=== PATIENT | male | born 1945 | race Caucasian/White ===

== ENCOUNTER 2021-12-13 15:35 | Emergency (ER) | payer OTHER, SELFPAY ==
[2021-12-13] VITALS (10 sets, daily range): BP systolic 110–139; BP diastolic 59–74; PULSE 65–94; RESP 17–35; TEMP 36.6; O2SAT 94–96; BMI 34.4
--- NOTE | 2021-12-13 15:56 | DI.RAD.S_ITS ---
PROCEDURE: XR CHEST 2V INDICATIONS: shortness of breath TECHNIQUE: 2 views of the chest were acquired. COMPARISON: None. FINDINGS: Surgical changes and devices: Tenotomy wires are noted. Lungs and pleura: Lungs are clear. No pleural effusions or pneumothorax. Mediastinum: Mediastinal contours are normal. Heart size is mildly enlarged. Bones and chest wall: No suspicious bony abnormalities. Soft tissues appear unremarkable. IMPRESSION: No acute cardiopulmonary abnormality. Approved by: Myles Modi M.D. on 12/13/2021 at 16:30
--- NOTE | 2021-12-13 16:24 | ED.SOB ---
HPI - SOB/Dyspnea General Chief Complaint: Shortness of Breath/Dyspnea Stated Complaint: Thinks pneumonia Time Seen by Provider: 12/13/21 16:17 Source: patient Mode of arrival: Ambulatory History of Present Illness HPI Narrative: Patient is a 76-year-old male history of asthma coronary artery disease with bypass, hypertension hyperlipidemia, CVA presenting today with increasing shortness of breath. He states he took 10 days of prednisone and doxycycline prescribed from his doctor in [place]. He says he does not feel any better. He short of breath with exertion. He has not had any fever or chills. He feels like his legs are more swollen than normal. He has no chest pain. He is visiting from [place] he arrived couple of weeks ago. He says typically when he comes to [facility] he always gets sick to his doctor gave him medications. However he finished the medications and overall does not feel any better. Related Data Home Medications Medication Instructions Recorded Confirmed albuterol sulfate 90 mcg/actuation 1 puff inhalation PRN PRN 12/13/21 12/13/21 aerosol inhaler Shortness Of Breath amlodipine 5 mg tablet 5 mg PO DAILY 12/13/21 12/13/21 aspirin 81 mg tablet,delayed 81 mg PO DAILY 12/13/21 12/13/21 release atorvastatin 40 mg tablet 40 mg PO BEDTIME 12/13/21 12/13/21 clopidogrel 75 mg tablet 75 mg PO DAILY 12/13/21 12/13/21 losartan 100 mg tablet 100 mg PO DAILY 12/13/21 12/13/21 metoprolol succinate 25 mg 37.5 mg PO DAILY 12/13/21 12/13/21 tablet,extended release 24 hr omeprazole 20 mg capsule,delayed 20 mg PO 12/13/21 release tamsulosin 0.4 mg capsule 0.4 mg PO DAILY 12/13/21 12/13/21 Previous Rx's Medication Instructions Recorded albuterol sulfate 2.5 mg/3 mL 2.5 mg (3 mL) inhalation QID PRN 12/13/21 (0.083 %) solution for nebulization bronchospasm #75 mL furosemide 20 mg tablet (Lasix) 20 mg PO QAM #3 tabs 12/13/21 Allergies Allergy/AdvReac Type Severity Reaction Status Date / Time levofloxacin [From Levaquin] AdvReac Neuropathy Verified 12/13/21 15:55 Review of Systems Review of Systems Narrative: GENERAL: Denies chills, fatigue, malaise, fever, sweats, travel HEENT: Denies sinus pain, ear pain, sore throat, difficulty swallowing, neck pain RESPIRATORY: See HPI CARDIOVASCULAR: Denies chest pain, palpitations, orthopnea, edema GASTROINTESTINAL: Denies nausea, vomiting, abdominal pain, diarrhea, constipation, melena. : Denies dysuria, frequency, incontinence, hematuria, urinary retention, flank pain. MUSCULOSKELETAL: Denies weakness, joint pain, or bony pain SKIN: No rash, no erythema, no pruritus NEUROLOGIC: Denies weakness, dizziness, headache, numbness, change in speech, confusion PSYCHIATRIC: No concerning psychosocial issues. 12 point review of systems is negative except for those stated above and HPI Patient History Social History Smoking Status: Never smoker Smoking Status: Never smoker alcohol intake frequency: other Substance Use Type: does not use Exam Initial Vital Signs Initial Vital Signs: Vital Signs Temperature 98 F 12/13/21 15:47 Pulse Rate 67 12/13/21 15:47 Respiratory Rate 17 12/13/21 15:47 Blood Pressure 133/61 12/13/21 15:47 Pulse Oximetry 96 12/13/21 15:47 Oxygen Delivery Method 12/13/21 15:47 GENERAL: Alert very pleasant 76-year-old male and in no acute distress. HEENT: Head atraumatic,EOMI, pupils reactive, face symmetric, moist mucous membranes CARDIOVASCULAR: Regular rate and rhythm without murmurs, rubs or gallops. RESPIRATORY: Coarse breath sounds bilaterally without wheezes rales or rhonchi no conversational dyspnea no tachypnea ABDOMEN: Soft, nontender. Normoactive bowel sounds all 4 quadrants. No guarding or rebound. EXTREMITIES: Normal range of motion, no clubbing. +2 pitting edema Neurovascularly intact NEUROLOGICAL: Alert and oriented x4.Normal gait and speech. SKIN: Warm, dry, no laceration, no petechiae, no rashes or lesions. Course Orders Ordered: ED Orders 12/13/21 15:56 XR chest 2V Stat RT Consult Eval and Treat Now 12/13/21 16:05 COVID19 -Nasal RAPID/Pre-Proc Stat 12/13/21 16:09 EKG-12 Lead Stat 12/13/21 16:24 Blood Culture Stat Complete Blood Count AUTO DIFF Stat Comprehensive Metabolic Panel Stat D Dimer Stat Lactate (Lactic Acid) Stat NT-proBNP (BNP-Adult 18+) Stat Procalcitonin Stat Respiratory Panel (Film Array) Stat Troponin & CK Cardiac Panel Stat 12/13/21 17:06 CT angio chest PE protocol Stat Discontinued Medications Furosemide (Furosemide 40 Mg/4 Ml Vial) 40 mg IV NOW ONE Stop: 12/13/21 18:42 Last Admin: 12/13/21 19:12 Dose: 40 mg Documented By: REGINALDO Vital Signs Vital signs: Vital Signs - 8 hr 12/13/21 15:47 12/13/21 16:26 12/13/21 16:30 Temperature 98 F Pulse Rate 67 74 71 Respiratory Rate 17 23 Blood Pressure 133/61 Pulse Oximetry 96 96 95 Oxygen Delivery Method Room Air 12/13/21 16:31 12/13/21 16:31 12/13/21 17:00 Temperature Pulse Rate 70 72 Respiratory Rate 27 H 35 H Blood Pressure 127/60 Pulse Oximetry 96 96 Oxygen Delivery Method 12/13/21 17:01 12/13/21 17:01 12/13/21 17:30 Temperature Pulse Rate 70 80 Respiratory Rate 28 H 30 H Blood Pressure 124/74 Pulse Oximetry 96 96 Oxygen Delivery Method 12/13/21 17:31 12/13/21 17:31 12/13/21 18:57 Temperature Pulse Rate 73 94 H Respiratory Rate 24 Blood Pressure 110/59 L Pulse Oximetry 96 94 Oxygen Delivery Method 12/13/21 19:35 Temperature Pulse Rate 65 Respiratory Rate Blood Pressure 139/67 Pulse Oximetry 95 Oxygen Delivery Method Room Air MDM - SOB/Dyspnea Lab Data Result diagrams: 12/13/21 16:24 12/13/21 16:24 Labs: Lab Results 12/13/21 12/13/21 12/13/21 Range/Units 16:05 16:24 16:24 WBC 10.1 (4.5-11.0) X10^3/uL RBC 3.78 L (4.5-5.9) X10^6/uL Hgb 12.3 L (13.5-17.5) g/dL Hct 35.9 L (41-53) % MCV 94.8 (80-100) fL MCH 32.4 (26-34) PG MCHC 34.2 (30-36) % RDW 13.9 (11.6-14.8) % Plt Count 240 (150-400) X10^3/uL Neut % (Auto) 64.1 (50-75) % Lymph % (Auto) 26.9 (25-40) % [place] % (Auto) 8.2 (3-14) % Eos % (Auto) 0.4 L (2-4) % Baso % (Auto) 0.4 (0-2) % Neut # (Auto) 6500 (8131-6345) /uL Lymph # (Auto) 2700 (9614-8059) /uL [place] # (Auto) 800 (0-900) /uL Eos # (Auto) 0 (0-450) /uL Baso # (Auto) 0 (0-100) /uL D-Dimer (<500) ng/ml Sodium 142 (137-145) mmol/L Potassium 4.2 (3.4-5.1) mmol/L Chloride 107 (98-107) mmol/L Carbon Dioxide 25 (22-32) mmol/L BUN 38 H (9-20) mg/dL Creatinine 1.46 H (0.66-1.25) mg/dL Estimated GFR 50 L (>60) mL/min BUN/Creatinine Ratio 26.0 H (6-22) Glucose 89 (80-110) mg/dL Lactate (0.7-2.1) mmol/L Calcium 9.2 (8.4-10.2) mg/dL Total Bilirubin 1.7 H (0.2-1.3) mg/dL AST 54 (17-59) IU/L ALT 32 (<50) IU/L Alkaline Phosphatase 43 (38-126) U/L Total Creatine Kinase (55-170) U/L CK-MB (CK-2) (<2.37) ng/mL CK-MB (CK-2) Rel Index (1.5-5.0) % Troponin I (0.01-0.034) ng/mL NT-Pro-B Natriuret Pep (<125) pg/mL Total Protein 6.3 (6.3-8.2) g/dL Albumin 3.5 (3.5-5.0) g/dL Globulin 2.8 (1.7-4.1) g/dL Albumin/Globulin Ratio 1.3 (1.0-2.8) Procalcitonin (<0.5) ng/mL Chlamy pneumoniae PCR (Not Detect) Adenovirus (PCR) (Not Detect) B. pertussis DNA (PCR) (Not Detecte) B.parapertussis DNA PCR (Not Detecte) Coronavirus OC43 (PCR) (Not Detect) Coronavirus HKU1 (PCR) (Not Detect) Coronavirus 229E (PCR) (Not Detect) SARS-CoV-2 (PCR) Negative (Negative) Coronavirus NL63 (PCR) (Not Detect) Human Metapneumovir PCR (Not Detect) Influenza Type A (PCR) (Not Detect) Influenza Type B (PCR) (Not Detect) M. pneumoniae (PCR) (Not Detect) Parainfluenza 1 (PCR) (Not Detect) Parainfluenza 2 (PCR) (Not Detect) Parainfluenza 3 (PCR) (Not Detect) Parainfluenza 4 (PCR) (Not Detect) RSV (PCR) (Not Detect) Entero/Rhino (PCR) (Not Detect) 12/13/21 12/13/21 12/13/21 Range/Units 16:24 16:24 16:24 WBC (4.5-11.0) X10^3/uL RBC (4.5-5.9) X10^6/uL Hgb (13.5-17.5) g/dL Hct (41-53) % MCV (80-100) fL MCH (26-34) PG MCHC (30-36) % RDW (11.6-14.8) % Plt Count (150-400) X10^3/uL Neut % (Auto) (50-75) % Lymph % (Auto) (25-40) % [place] % (Auto) (3-14) % Eos % (Auto) (2-4) % Baso % (Auto) (0-2) % Neut # (Auto) (5196-7211) /uL Lymph # (Auto) (9106-3739) /uL [place] # (Auto) (0-900) /uL Eos # (Auto) (0-450) /uL Baso # (Auto) (0-100) /uL D-Dimer (<500) ng/ml Sodium (137-145) mmol/L Potassium (3.4-5.1) mmol/L Chloride (98-107) mmol/L Carbon Dioxide (22-32) mmol/L BUN (9-20) mg/dL Creatinine (0.66-1.25) mg/dL Estimated GFR (>60) mL/min BUN/Creatinine Ratio (6-22) Glucose (80-110) mg/dL Lactate 1.5 (0.7-2.1) mmol/L Calcium (8.4-10.2) mg/dL Total Bilirubin (0.2-1.3) mg/dL AST (17-59) IU/L ALT (<50) IU/L Alkaline Phosphatase (38-126) U/L Total Creatine Kinase 273 H (55-170) U/L CK-MB (CK-2) 2.14 (<2.37) ng/mL CK-MB (CK-2) Rel Index 0.8 L (1.5-5.0) % Troponin I < 0.012 (0.01-0.034) ng/mL NT-Pro-B Natriuret Pep 365 H (<125) pg/mL Total Protein (6.3-8.2) g/dL Albumin (3.5-5.0) g/dL Globulin (1.7-4.1) g/dL Albumin/Globulin Ratio (1.0-2.8) Procalcitonin (<0.5) ng/mL Chlamy pneumoniae PCR (Not Detect) Adenovirus (PCR) (Not Detect) B. pertussis DNA (PCR) (Not Detecte) B.parapertussis DNA PCR (Not Detecte) Coronavirus OC43 (PCR) (Not Detect) Coronavirus HKU1 (PCR) (Not Detect) Coronavirus 229E (PCR) (Not Detect) SARS-CoV-2 (PCR) (Negative) Coronavirus NL63 (PCR) (Not Detect) Human Metapneumovir PCR (Not Detect) Influenza Type A (PCR) (Not Detect) Influenza Type B (PCR) (Not Detect) M. pneumoniae (PCR) (Not Detect) Parainfluenza 1 (PCR) (Not Detect) Parainfluenza 2 (PCR) (Not Detect) Parainfluenza 3 (PCR) (Not Detect) Parainfluenza 4 (PCR) (Not Detect) RSV (PCR) (Not Detect) Entero/Rhino (PCR) (Not Detect) 12/13/21 12/13/21 12/13/21 Range/Units 16:24 16:24 16:24 WBC (4.5-11.0) X10^3/uL RBC (4.5-5.9) X10^6/uL Hgb (13.5-17.5) g/dL Hct (41-53) % MCV (80-100) fL MCH (26-34) PG MCHC (30-36) % RDW (11.6-14.8) % Plt Count (150-400) X10^3/uL Neut % (Auto) (50-75) % Lymph % (Auto) (25-40) % [place] % (Auto) (3-14) % Eos % (Auto) (2-4) % Baso % (Auto) (0-2) % Neut # (Auto) (8388-7582) /uL Lymph # (Auto) (0764-6070) /uL [place] # (Auto) (0-900) /uL Eos # (Auto) (0-450) /uL Baso # (Auto) (0-100) /uL D-Dimer 1028 H (<500) ng/ml Sodium (137-145) mmol/L Potassium (3.4-5.1) mmol/L Chloride (98-107) mmol/L Carbon Dioxide (22-32) mmol/L BUN (9-20) mg/dL Creatinine (0.66-1.25) mg/dL Estimated GFR (>60) mL/min BUN/Creatinine Ratio (6-22) Glucose (80-110) mg/dL Lactate (0.7-2.1) mmol/L Calcium (8.4-10.2) mg/dL Total Bilirubin (0.2-1.3) mg/dL AST (17-59) IU/L ALT (<50) IU/L Alkaline Phosphatase (38-126) U/L Total Creatine Kinase (55-170) U/L CK-MB (CK-2) (<2.37) ng/mL CK-MB (CK-2) Rel Index (1.5-5.0) % Troponin I (0.01-0.034) ng/mL NT-Pro-B Natriuret Pep (<125) pg/mL Total Protein (6.3-8.2) g/dL Albumin (3.5-5.0) g/dL Globulin (1.7-4.1) g/dL Albumin/Globulin Ratio (1.0-2.8) Procalcitonin 0.06 (<0.5) ng/mL Chlamy pneumoniae PCR Not detected (Not Detect) Adenovirus (PCR) Not detected (Not Detect) B. pertussis DNA (PCR) Not detected (Not Detecte) B.parapertussis DNA PCR Not detected (Not Detecte) Coronavirus OC43 (PCR) Not detected (Not Detect) Coronavirus HKU1 (PCR) Not detected (Not Detect) Coronavirus 229E (PCR) Not detected (Not Detect) SARS-CoV-2 (PCR) Not detected (Negative) Coronavirus NL63 (PCR) Not detected (Not Detect) Human Metapneumovir PCR Not detected (Not Detect) Influenza Type A (PCR) Not detected (Not Detect) Influenza Type B (PCR) Not detected (Not Detect) M. pneumoniae (PCR) Not detected (Not Detect) Parainfluenza 1 (PCR) Not detected (Not Detect) Parainfluenza 2 (PCR) Not detected (Not Detect) Parainfluenza 3 (PCR) Detected H (Not Detect) Parainfluenza 4 (PCR) Not detected (Not Detect) RSV (PCR) Not detected (Not Detect) Entero/Rhino (PCR) Not detected (Not Detect) Imaging Data Chest x-ray: Radiologist's Impression: atient: Angely Beebe MR#: [id number] : 1945 Acct:[id number] Age/Sex: 76 / M Date of Service: 12/13/21 Loc: ED Accession Number: [id number] ?? Procedure: XR chest 2V Ordering Provider: Cecile Vasquez D.O. PROCEDURE:? XR CHEST 2V ? INDICATIONS:? shortness of breath ? TECHNIQUE:? 2 views of the chest were acquired.? ? COMPARISON:? None. ? FINDINGS:? ? Surgical changes and devices:? Tenotomy wires are noted. ? Lungs and pleura:? Lungs are clear.? No pleural effusions or pneumothorax.? ? Mediastinum:? Mediastinal contours are normal.? Heart size is mildly enlarged.? ? Bones and chest wall:? No suspicious bony abnormalities.? Soft tissues appear unremarkable.? ? IMPRESSION:? No acute cardiopulmonary abnormality. ? ? ? Approved by: Myles Modi M.D. on 12/13/2021 at 16:30? CT scan - chest: Radiologist's Impression: Luis ARACELI [id number] CT Scan Report Signed Patient: Angely Beebe MR#: [id number] : 1945 Acct:[id number] Age/Sex: 76 / M Date of Service: 12/13/21 Loc: ED Accession Number: [id number] ?? Procedure: CT angio chest PE protocol Ordering Provider: Cecile Vasquez D.O. PROCEDURE:? CT ANGIO CHEST PE PROTOCOL ? INDICATIONS:? Shortness of breath with recent travel + dimer ? TECHNIQUE:? After the administration of intravenous contrast, 2 mm thick sections acquired from the pulmonary apices to the posterior costophrenic angles.? 3-dimensional maximum intensity projection (MIP) coronal and sagittal reformats were then acquired through the thorax.? For radiation dose reduction, the following was used:? automated exposure control, adjustment of mA and/or kV according to patient size.? ? COMPARISON:? None. ? FINDINGS:? Image quality:? Excellent.? ? Pulmonary arteries:? Pulmonary arteries are normal in size, and demonstrate no intraluminal filling defects to suggest central pulmonary embolism.? ? Lungs and pleura:? Mild basilar bronchiectasis, some areas of mucous plugging and/or aspiration also present.? Mild right lower lobe micro nodularity.? No pleural effusion or pneumothorax. ? Mediastinum:? no pericardial effusion.? No mediastinal or hilar adenopathy.? Thoracic aorta is normal in caliber and enhancement.? ? Bones and chest wall:? No suspicious bony lesions.? Ribs and thoracic spine appear intact throughout. no axillary or supraclavicular adenopathy.? ? Abdomen:? Cholecystectomy ? IMPRESSION:? 1. No pulmonary embolism demonstrated. 2. Mild basilar bronchiectasis, some areas of mucous plugging and/or aspiration also present.? Mild right lower lobe micro nodularity could represent sequela of aspiration and/or bronchopneumonia or other infectious/inflammatory etiology.? ? ? Dictated by: Myles Dailey M.D. on 12/13/2021 at 18:24 ? ECG Data Interpretation: Normal sinus rhythm rate 69 MD interval 1 44 QRS [address] changes no T-wave inversion MDM Narrative Medical decision making narrative: Overall appears well. He does have a cough is. CT is negative for pulmonary embolism there is no evidence of pneumonia or sepsis. BNP a barely elevated in the 300s but he does have some obvious peripheral edema will give him a couple days of Lasix to see if it helps his breathing. Respiratory panel is positive for parainfluenza virus probably why he still does not feel great. At this time there is no indication for admission. Supportive care only. He states he does not get any better with prednisone or antibiotics. He would like albuterol for his nebulizer. Discharge Plan Departure Patient Disposition: Home Clinical Impression: Upper respiratory infection, Edema, peripheral Activity Restrictions/Additional Instructions: *You have been diagnosed with upper respiratory infection, parainfluenza virus and peripheral edema *What to do: At this time I do recommend that you rest. Stay hydrated fever control if needed. Your cough will get better. At this time no need for antibiotics. *Continue to take medications as directed Albuterol nebulizer or inhaler every 4 hours if needed for cough Lasix 20 mg once a day in the morning for 3 days *Follow up with your primary care provider in 2-3 days or call [phone] *Return to ER if you should have increased difficulty breathing fever confusion chest pain or any new, worsening or concerning symptoms Prescriptions: New furosemide [Lasix] 20 mg tablet 20 mg PO QAM Qty: 3 0RF albuterol sulfate 2.5 mg /3 mL (0.083 %) solution for nebulization 2.5 mg inhalation QID PRN (Reason: bronchospasm) Qty: 75 0RF No Action atorvastatin 40 mg tablet 40 mg PO BEDTIME Label Comments: TAKE 1 TABLET BY MOUTH EVERY NIGHT AT BEDTIME clopidogrel 75 mg tablet 75 mg PO DAILY amlodipine 5 mg tablet 5 mg PO DAILY aspirin 81 mg tablet,delayed release (DR/EC) 81 mg PO DAILY Label Comments: TAKE 1 TABLET BY MOUTH DAILY tamsulosin 0.4 mg capsule 0.4 mg PO DAILY omeprazole 20 mg capsule,delayed release(DR/EC) 20 mg PO metoprolol succinate 25 mg tablet extended release 24 hr 37.5 mg PO DAILY albuterol sulfate 90 mcg/actuation HFA aerosol inhaler 1 puff INHALATION PRN PRN (Reason: Shortness Of Breath) Label Comments: INHALE 2 PUFFS BY MOUTH FOUR TIMES DAILY NEEDED losartan 100 mg tablet 100 mg PO DAILY Visit Report Forms: Patient Portal/API
[2021-12-13 16:44] LABS: Add Manual Diff / Slide Review NO; Basophils Absolute Auto 0 /uL (0-100); Basophils Percent Auto 0.4 % (0-2); Eosinophils Absolute Auto 0 /uL (0-450); Eosinophils Percent Auto 0.4 % (2-4); Hematocrit 35.9 % (41-53); Hemoglobin 12.3 g/dL (13.5-17.5); Lymphocytes Absolute Auto 2700 /uL (1100-4500); Lymphocytes Percent Auto 26.9 % (25-40); Mean Corpuscular HGB Conc 34.2 % (30-36); Mean Corpuscular Hemoglobin 32.4 PG (26-34); Mean Corpuscular Volume 94.8 fL (80-100); Monocytes Absolute Auto 800 /uL (0-900); Monocytes Percent Auto 8.2 % (3-14); Neutrophils Absolute Auto 6500 /uL (1500-7000); Neutrophils Percent Auto 64.1 % (50-75); Platelet Count 240 X10^3/uL (150-400); Red Blood Cell Count 3.78 X10^6/uL (4.5-5.9); Red Cell Distribution Width 13.9 % (11.6-14.8); White Blood Cell Count 10.1 X10^3/uL (4.5-11.0)
[2021-12-13 16:49] LABS: Creatine Kinase 273 U/L (55-170); D Dimer 1028 ng/ml (<500)
[2021-12-13 16:50] LABS: Lactate (Lactic Acid) 1.5 mmol/L (0.7-2.1)
[2021-12-13 16:51] LABS: Alanine Aminotransferase 32 IU/L (<50); Albumin 3.5 g/dL (3.5-5.0); Albumin Globulin Ratio 1.3 (1.0-2.8); Alkaline Phosphatase 43 U/L (38-126); Aspartate Aminotransferase 54 IU/L (17-59); Bilirubin Total 1.7 mg/dL (0.2-1.3); Blood Urea Nitrogen 38 mg/dL (9-20); Calcium 9.2 mg/dL (8.4-10.2); Carbon Dioxide 25 mmol/L (22-32); Chloride 107 mmol/L (98-107); Estimated Glomerular Filt Rate 50 mL/min (>60); Globulin 2.8 g/dL (1.7-4.1); Glucose 89 mg/dL (80-110); HEMOLYSIS 21 (0-50); Potassium 4.2 mmol/L (3.4-5.1); Sodium 142 mmol/L (137-145); Total Protein 6.3 g/dL (6.3-8.2)
[2021-12-13 16:55] LABS: COVID19 -Nasal RAPID Negative (Negative)
[2021-12-13 17:00] LABS: NT-proBNP (BNP-Adult 18+) 365 pg/mL (<125)
[2021-12-13 17:02] LABS: Troponin I < 0.012 ng/mL (0.01-0.034)
[2021-12-13 17:05] LABS: CKMB % Relative Index 0.8 % (1.5-5.0); Creatine Kinase MB 2.14 ng/mL (<2.37)
--- NOTE | 2021-12-13 17:06 | DI.CT.S_ITS ---
PROCEDURE: CT ANGIO CHEST PE PROTOCOL INDICATIONS: Shortness of breath with recent travel + dimer TECHNIQUE: After the administration of intravenous contrast, 2 mm thick sections acquired from the pulmonary apices to the posterior costophrenic angles. 3-dimensional maximum intensity projection (MIP) coronal and sagittal reformats were then acquired through the thorax. For radiation dose reduction, the following was used: automated exposure control, adjustment of mA and/or kV according to patient size. COMPARISON: None. FINDINGS: Image quality: Excellent. Pulmonary arteries: Pulmonary arteries are normal in size, and demonstrate no intraluminal filling defects to suggest central pulmonary embolism. Lungs and pleura: Mild basilar bronchiectasis, some areas of mucous plugging and/or aspiration also present. Mild right lower lobe micro nodularity. No pleural effusion or pneumothorax. Mediastinum: no pericardial effusion. No mediastinal or hilar adenopathy. Thoracic aorta is normal in caliber and enhancement. Bones and chest wall: No suspicious bony lesions. Ribs and thoracic spine appear intact throughout. no axillary or supraclavicular adenopathy. Abdomen: Cholecystectomy IMPRESSION: 1. No pulmonary embolism demonstrated. 2. Mild basilar bronchiectasis, some areas of mucous plugging and/or aspiration also present. Mild right lower lobe micro nodularity could represent sequela of aspiration and/or bronchopneumonia or other infectious/inflammatory etiology. Dictated by: Myles Dailey M.D. on 12/13/2021 at 18:24 Approved by: Myles Dailey M.D. on 12/13/2021 at 18:32
[2021-12-13 17:15] LABS: Procalcitonin 0.06 ng/mL (<0.5)
[2021-12-13 17:42] LABS: Adenovirus Not Detected (Not Detect); B. parapertussis Not Detected (Not Detecte); Bordetella pertussis Not Detected (Not Detecte); Chlamydophila pneumoniae Not Detected (Not Detect); Coronavirus 229E Not Detected (Not Detect); Coronavirus HKU1 Not Detected (Not Detect); Coronavirus NL 63 Not Detected (Not Detect); Coronavirus OC43 Not Detected (Not Detect); Human Metapneumovirus Not Detected (Not Detect); Human Rhinovirus/Enterovirus Not Detected (Not Detect); Influenza A Not Detected (Not Detect); Influenza B Not Detected (Not Detect); Mycoplasma pneumoniae Not Detected (Not Detect); Parainfluenza Virus 1 Not Detected (Not Detect); Parainfluenza Virus 2 Not Detected (Not Detect); Parainfluenza Virus 3 Detected (Not Detect); Parainfluenza Virus 4 Not Detected (Not Detect); Respiratory Syncytial Virus Not Detected (Not Detect); SARS- CoV-2 Not Detected (Not Detecte)
[2021-12-13] MEDS: FUROSEMIDE 40 MG/4 ML VIAL IV (19:12)
== END 2021-12-13 19:36 | disposition home or self-care (01) ==
PROVIDERS: Emergency Provider Emergency Medicine
DX: J06.9 Acute upper respiratory infection, unspecified (principal); R60.9 Edema, unspecified; Z20.822 Contact with and (suspected) exposure to COVID-19
CPT/HCPCS: 36415; 71046; 71275; 80053; 82550; 82553; 83605; 83880; 84145; 84484; 85025; 85379; 87040; 87633; 87635; 93005; 96374; 99284; C9803; J1940; Q9967